=== PATIENT | male | born 1950 | race Caucasian/White ===

== ENCOUNTER → 2017-08-14 | Outpatient (CLI) | payer OTHER, BC | LOC: FIMAGING 10:25 | PROVIDERS: ATTEND Internal Medicine | DX: K74.69 Other cirrhosis of liver (principal) ==

== ENCOUNTER → 2018-04-26 | Outpatient (CLI) | payer OTHER, BC | LOC: FIMAGING 09:51 | PROVIDERS: ATTEND Internal Medicine | DX: K74.69 Other cirrhosis of liver (principal); R16.1 Splenomegaly, not elsewhere classified ==

== ENCOUNTER → 2018-08-27 | Outpatient (CLI) | payer OTHER, BC | LOC: BHFA 14:45 | PROVIDERS: ATTEND Internal Medicine Cardiovascular Disease | DX: Z51.11 Encounter for antineoplastic chemotherapy (principal) ==

== ENCOUNTER 2018-09-08 10:56 | Day surgery (SDC) | payer OTHER, BC ==
[2018-09-08] MEDS ORDERED: BUPIVACAINE 0.5% 30 ML SDV ONE (11:17)
[2018-09-08] MEDS ORDERED: ceFAZolin 2 GM/DEXTROSE 100 ML IV ONE (11:19)
[2018-09-08] MEDS ORDERED: LIDOCAINE 1% 2 ML INJ ID PRN (11:42)
[2018-09-08] MEDS ORDERED: LR 1,000 ML IV ONE (11:42)
[2018-09-08] MEDS ORDERED: MIDAZOLAM 2 MG/2 ML VIAL IVP ONE (12:10)
--- NOTE | 2018-09-08 12:15 | PDANEPAE ---
ANE History of Present Illness 68 year old with cancer for chemo ANE Past Medical History - Cardiovascular History Hx Hypertension: Yes Hx Arrhythmias: No Hx Chest Pain: No Hx Coronary Artery / Peripheral Vascular Disease: No Hx CHF / Valvular Disease: No Hx Palpitations: No - Pulmonary History Hx COPD: No Hx Asthma/Reactive Airway Disease: No Hx Recent Upper Respiratory Infection: No Hx Oxygen in Use at Home: No Hx Sleep Apnea: No Sleep Apnea Screening Result - Last Documented: Positive - Neurologic History Hx Cerebrovascular Accident: No Hx Seizures: No Hx Dementia: No - Endocrine History Hx Diabetes: No - Renal History Hx Renal Disorders: No - Liver History Hx Hepatic Disorders: Yes Hepatic History Comment: Hep C hx. portal hypertension - Neurological & Psychiatric Hx Hx Neurological and Psychiatric Disorders: No - Cancer History Hx Cancer: Yes Cancer History Comment: Non-Hodgkins Lymphoma. Hodgkins Lymphoma - Congenital Disorder History Hx Congenital Disorders: No - GI History Hx Gastrointestinal Disorders: No - Chronic Pain History Chronic Pain: No - Surgical History Prior Surgeries: R femur sx with hardware, vascular access ports, tonsillectomy ANE Review of Systems Review of systems is: negative Review of Systems: - Exercise capacity METS (RN): 4 METS ANE Patient History - Allergies Allergies/Adverse Reactions: bleomycin [Bleomycin] Allergy (Severe, Verified 02/18/12 02:37) Other-Enter Comments - Home Medications Home medications: home medication list seen and reviewed Home Medications: Levothyroxine [Synthroid 50 mcg (*)] 50 mcg PO DAILY06 01/21/15 [Last Taken 10/26 07:30] Warfarin Sodium [Coumadin 2.5MG (*)] 0.5 mg PO DAILY16 09/08/18 [Last Taken ] - NPO status NPO Since - Liquids (Date): 09/08/18 NPO Since - Liquids (Time): 09:00 NPO Since - Solids (Date): 09/07/18 NPO Since - Solids (Time): 20:30 - Anes Hx Anes Hx: no prior problems - Smoking Hx Smoking Status: Former smoker - Alcohol Use Alcohol Use: Rarely - Family Anes Hx Family Hx Anesthesia Complications: none known ANE Labs/Vital Signs - Vital Signs Blood Pressure: 125/85 Heart Rate: 53 Respiratory Rate: 16 O2 Sat (%): 96 Height: 175.26 cm Weight: 88.451 kg ANE Physical Exam - [facility] Mouth exam: normal dental/mouth exam - Pulmonary Pulmonary: no respiratory distress - Cardiovascular Cardiovascular: regular rate and rhythym - ASA Status ASA Status: III ANE Anesthesia Plan Anesthesia Plan: MAC
--- NOTE | 2018-09-08 12:16 | PDHPUP ---
History & Physical Update H&P update statement: This history and physical update is based on an assessment of the patient which was completed after admission or registration (within 24 hours), but prior to the surgery/procedure. H&P update: H&P reviewed & patient examined, no change in patient's condition since H&P completed
[2018-09-08 12:18] LABS: INR 1.31 (0.83-1.16); PROTIME(PATIENT) 16.5 SEC (12.0-15.0)
[2018-09-08] MEDS ORDERED: NA BICARBONATE 50 MEQ/50 ML VIAL ONE (12:37)
[2018-09-08] MEDS ORDERED: fentaNYL 100 MCG/2 ML INJ ONE (12:37)
[2018-09-08] MEDS ORDERED: PROPOFOL/EMULSION 500 MG/50 ML BOTTLE IV ONE (12:37)
[2018-09-08] MEDS ORDERED: LIDOCAINE 1% 300 MG/30 ML SDV ONE (12:37)
[2018-09-08] MEDS ORDERED: PROMETHAZINE HCL 25 MG/ML INJ IVP PRN (13:35)
[2018-09-08] MEDS ORDERED: ONDANSETRON 4 MG/2 ML VIAL IVP PRN (13:35)
[2018-09-08] MEDS ORDERED: NALOXONE HCL 0.4 MG/ML INJ IVP PRN (13:35)
[2018-09-08] MEDS ORDERED: fentaNYL 100 MCG/2 ML INJ IVP PRN (13:35)
--- NOTE | 2018-09-08 13:35 | POSTANESTH ---
Post Anesthetic Evaluation Cardiovascular Status: Normal, Stable Respiratory Status: Normal, Stable Level of Consciousness/Mental Status: Can Participate in Eval Pain Control: Adequate, Prn Tx Ordered Nausea/Vomiting Control: Adequate, Prn Tx Ordered Complications Possibly Related to Anesthesia: None Noted
[2018-09-08 14:49] VITALS: BP 102/64
--- NOTE | 2018-09-08 16:17 | GOP ---
DATE OF OPERATION: 09/08/2018 SURGEON: Fer Adam MD PREOPERATIVE DIAGNOSIS: Recurrent lymphoma. POSTOPERATIVE DIAGNOSIS: Recurrent lymphoma. PROCEDURE PERFORMED: Right subclavian port placement with fluoroscopic guidance. FINDINGS: Patient was found to have good flow and good position of the port. DESCRIPTION OF PROCEDURE: The patient was taken to the operating room where he received a satisfacto ry IV sedation and monitored anesthesia care by Dr. Felton. Placed in a supine position, prepped and d raped in the usual sterile fashion. Using 1% Xylocaine local infiltration, a direct stick was made i n the right subclavian vein. Guidewire was introduced. Position was confirmed with fluoroscopy. A subcu pocket was made in the 2nd intercostal space. Port tubing was passed from the pocket to the nugent bclavian insertion site and trimmed to the appropriate length using fluoroscopic guidance. Introduce d through the introducer sheath and dilator system into the right atrium. Good backflow was achieved . The catheter was flushed with heparin saline. Port was secured to the fascia with 3-0 Vicryl. Po cket was closed with 3-0 Vicryl in the subcu and a 4-0 Prolene subcuticular stitch for the skin. The entrance site was closed with Prolene mattress suture. Wounds were also infiltrated with 0.5% Emani ine prior to closure. He tolerated the procedure well, was taken to recovery room in good condition. No complications. Blood loss negligible. /[id number]/MODL
== END 2018-09-08 15:12 | disposition home or self-care (01) ==
LOC: FSGY 10:56
PROVIDERS: ATTEND Surgery
PROC: 0JH60XZ Insertion of Tunneled Vascular Access Device into Chest Subcutaneous Tissue and Fascia, Open Approach (ICD-10-PCS; principal; 2018-09-08 12:15)
PROC: 02HV33Z Insertion of Infusion Device into Superior Vena Cava, Percutaneous Approach (ICD-10-PCS; principal; 2018-09-08 12:15)
DX: C81.02 Nodular lymphocyte predominant Hodgkin lymphoma, intrathoracic lymph nodes (principal); K74.60 Unspecified cirrhosis of liver; B19.20 Unspecified viral hepatitis C without hepatic coma; K76.6 Portal hypertension
CPT/HCPCS: C1788; J0690; J1642; J2250; J2704; J3010

== ENCOUNTER → 2018-11-11 | Outpatient (CLI) | payer OTHER, BC | LOC: FIMAGING 10:01 | PROVIDERS: ATTEND Internal Medicine | DX: K74.69 Other cirrhosis of liver (principal) ==